=== PATIENT | male | born 1990 | race Caucasian/White ===

== ENCOUNTER 2020-11-20 12:05 | Emergency (ER) | payer OTHER, MEDICAID, SELFPAY ==
[2020-11-20 12:17] VITALS: BP 162/92; PULSE 100; RESP 18; TEMP 36.9; O2SAT 100; BMI 18.1
--- NOTE | 2020-11-20 12:21 | PC.NURSE ---
pt just walked out of department stating he needs to use the restroom, explained the restroom is here in department, pt kept walking. will wait for a few minutes to see if he returns.
--- NOTE | 2020-11-20 12:39 | ED.MEDCLEAR ---
HPI - Medical Clearance <CLAUDIO Baird - Last Filed: 11/20/20 12:40> General Chief complaint: Medical Clearance Stated complaint: Need to get medically cleared for detox Time Seen by Provider: 11/20/20 12:23 Source: patient Mode of arrival: Ambulatory History of Present Illness HPI Narrative: I have signed the for the patient but patient had already left ED when I went into the room to evaluate the patient at 1229 Patient History <CLAUDIO Baird - Last Filed: 11/20/20 12:40> Social History Smoking Status: Current every day smoker Smoking Status: Current every day smoker tobacco type: cigarettes Substance Use Type: marijuana, heroin and methamphetamine Exam <CLAUDIO Baird Last Filed: 11/20/20 12:40> Initial Vital Signs Initial Vital Signs: Vital Signs Temperature 98.4 F 11/20/20 12:17 Pulse Rate 100 H 11/20/20 12:17 Respiratory Rate 18 11/20/20 12:17 Blood Pressure 162/92 H 11/20/20 12:17 Pulse Oximetry 100 11/20/20 12:17 <Orlando Clifford DO - Last Filed: 11/20/20 13:03> Initial Vital Signs Initial Vital Signs: Vital Signs Temperature 98.4 F 11/20/20 12:17 Pulse Rate 100 H 11/20/20 12:17 Respiratory Rate 18 11/20/20 12:17 Blood Pressure 162/92 H 11/20/20 12:17 Pulse Oximetry 100 11/20/20 12:17 Discharge Plan Departure Patient Disposition: Left Without Being Seen Clinical Impression: Patient left before evaluation by physician <DO Tigre Mccall Last Filed: 11/20/20 13:03> Cosign ED Attending Cosignature Attestation: Dr Clifford Co-Sign Statement: I was available for consultation during this patient's emergency department visit. This chart is signed by myself for administrative purposes only. I did not have direct contact with this patient during this visit. They were seen independently by the APC.
== END 2020-11-20 12:23 | disposition left against medical advice (07) ==
PROVIDERS: Emergency Provider Nurse Practitioner Family
CPT/HCPCS: 99281

== ENCOUNTER 2023-05-22 01:54 | Emergency (ER) | payer OTHER, MEDICAID, SELFPAY ==
[2023-05-22 01:59] VITALS: BP 146/92; PULSE 84; RESP 18; TEMP 36.4; O2SAT 100
--- NOTE | 2023-05-22 03:04 | ED.EXTPRO ---
HPI - Extremity Problem <Pina Layton MD - Last Filed: 05/31/23 18:22> General Chief complaint: Extremity Problem,Nontraumatic Stated complaint: Wants fluids Time Seen by Provider: 05/22/23 02:10 Source: patient Mode of arrival: Ambulatory History of Present Illness HPI Narrative: 32-year-old gentleman with history of methamphetamine and opioid use disorder states he currently is in remission but has been discharged from his sober living facility presents complaining that he is having difficulty thinking and there no thoughts in his head. He feels he needs fluids. He has difficulty focusing and nods off mid sentence. He states that he does not currently have a place to live since being discharged from his sober living situation he has simply been wandering the streets. He does not remember the last time that he slept. He does not describe fevers, cough, chills, abdominal pain, vomiting or diarrhea. Review of Systems <Pina Layton MD - Last Filed: 05/31/23 18:22> Review of Systems Narrative: Pertinent positive and negative findings as per HPI Patient History <Pina Layton MD - Last Filed: 05/31/23 18:22> Social History Smoking Status: Current every day smoker Smoking Status: Current every day smoker tobacco type: cigarettes Substance Use Type: marijuana, heroin and methamphetamine Exam <Pina Layton MD - Last Filed: 05/31/23 18:22> Initial Vital Signs Initial Vital Signs: Vital Signs Temperature 97.5 F L 05/22/23 01:59 Pulse Rate 84 05/22/23 01:59 Respiratory Rate 18 05/22/23 01:59 Blood Pressure 146/92 H 05/22/23 01:59 Pulse Oximetry 100 05/22/23 01:59 Oxygen Delivery Method Room Air 05/22/23 01:59 General: Chronically ill-appearing, quite thin, mildly injected sclera, nodding off in between words. HEENT: Moist mucous membranes, normal sclera with reactive pupils Respiratory: Lungs are clear to auscultation, no wheezing no rales no rhonchi. Full and symmetrical air movement Cardiac: Regular rate and rhythm no murmurs no bruits Abdomen: Soft, nontender, good bowel tones, no flank pain Skin: Warm and dry, no rashes Neurologic: Grossly neurologically intact with no obvious asymmetries or abnormalities Extremities: No trauma, well perfused Psych: Fatigued, difficulty focusing, speech is somewhat confused but not pressured. He does not appear to be responding to internal stimuli <pAril Glez DO - Last Filed: 05/22/23 15:42> Initial Vital Signs Initial Vital Signs: Vital Signs Temperature 97.5 F L 05/22/23 01:59 Pulse Rate 84 05/22/23 01:59 Respiratory Rate 18 05/22/23 01:59 Blood Pressure 146/92 H 05/22/23 01:59 Pulse Oximetry 100 05/22/23 01:59 Oxygen Delivery Method Room Air 05/22/23 01:59 Course <Pina Layton MD - Last Filed: 05/31/23 18:22> Orders Ordered: ED Orders 05/22/23 07:04 Consult to [facility] Principal Technologist Stat Vital Signs Vital signs: Vital Signs - 8 hr 05/22/23 07:55 05/22/23 13:59 Pulse Rate 63 60 Blood Pressure 145/83 H 141/77 H Pulse Oximetry 99 97 Oxygen Delivery Method Room Air Room Air <April Glez DO - Last Filed: 05/22/23 15:42> Orders Ordered: ED Orders 05/22/23 07:04 Consult to [facility] Principal Technologist Stat Vital Signs Vital signs: Vital Signs - 8 hr 05/22/23 07:55 05/22/23 13:59 Pulse Rate 63 60 Blood Pressure 145/83 H 141/77 H Pulse Oximetry 99 97 Oxygen Delivery Method Room Air Room Air MDM - Extremity (Nontraumatic) <Pina Layton MD - Last Filed: 05/31/23 18:22> Lab Data 05/22/23 04:00 05/22/23 04:00 Labs: Lab Results 05/22/23 05/22/23 05/22/23 Range/Units 04:00 04:00 04:00 WBC 10.5 (4.5-11.0) X10^3/uL RBC 4.72 (4.5-5.9) X10^6/uL Hgb 13.7 (13.5-17.5) g/dL Hct 39.8 L (41-53) % MCV 84.1 (80-100) fL MCH 29.1 (26-34) PG MCHC 34.6 (30-36) % RDW 14.6 (11.6-14.8) % Plt Count 191 (150-400) X10^3/uL Neut % (Auto) 71.5 (50-75) % Lymph % (Auto) 17.2 L (25-40) % [place] % (Auto) 9.6 (3-14) % Eos % (Auto) 0.9 L (2-4) % Baso % (Auto) 0.8 (0-2) % Neut # (Auto) 7500 H (6976-3206) /uL Lymph # (Auto) 1800 (8708-0550) /uL [place] # (Auto) 1000 H (0-900) /uL Eos # (Auto) 100 (0-450) /uL Baso # (Auto) 100 (0-100) /uL Sodium 134 L (137-145) mmol/L Potassium 3.7 (3.4-5.1) mmol/L Chloride 98 (98-107) mmol/L Carbon Dioxide 29 (22-32) mmol/L BUN 13 (9-20) mg/dL Creatinine 0.76 (0.66-1.25) mg/dL Estimated GFR > 60 (>60) mL/min BUN/Creatinine Ratio 17.1 (6-22) Glucose 104 H (70-100) mg/dL Calcium 8.6 (8.4-10.2) mg/dL Total Bilirubin 1.1 (0.2-1.3) mg/dL AST 70 H (17-59) IU/L ALT 34 (<50) IU/L Alkaline Phosphatase 60 (38-126) U/L Total Protein 7.3 (6.3-8.2) g/dL Albumin 4.3 (3.5-5.0) g/dL Globulin 3.0 (1.7-4.1) g/dL Albumin/Globulin Ratio 1.4 (1.0-2.8) TSH 1.49 (0.47-4.68) uIU/mL U Opiates 300ng/mL cut (Negative) Ur Oxycodone Screen (Negative) Urine Methadone Screen (Negative) Ur Barbiturates Screen (Negative) U Tricyclic Antidepress (Negative) Ur Phencyclidine Scrn (Negative) Ur Amphetamines Screen (Negative) U Methamphetamines Scrn (Negative) Ur MDMA Scrn (Ecstasy) (Negative) U Benzodiazepines Scrn (Negative) Urine Cocaine Screen (Negative) U Marijuana (THC) Screen (Negative) Ethyl Alcohol < 10 ( - 10) mg/dL 05/22/23 Range/Units 06:38 WBC (4.5-11.0) X10^3/uL RBC (4.5-5.9) X10^6/uL Hgb (13.5-17.5) g/dL Hct (41-53) % MCV (80-100) fL MCH (26-34) PG MCHC (30-36) % RDW (11.6-14.8) % Plt Count (150-400) X10^3/uL Neut % (Auto) (50-75) % Lymph % (Auto) (25-40) % [place] % (Auto) (3-14) % Eos % (Auto) (2-4) % Baso % (Auto) (0-2) % Neut # (Auto) (3779-5642) /uL Lymph # (Auto) (9129-6539) /uL [place] # (Auto) (0-900) /uL Eos # (Auto) (0-450) /uL Baso # (Auto) (0-100) /uL Sodium (137-145) mmol/L Potassium (3.4-5.1) mmol/L Chloride (98-107) mmol/L Carbon Dioxide (22-32) mmol/L BUN (9-20) mg/dL Creatinine (0.66-1.25) mg/dL Estimated GFR (>60) mL/min BUN/Creatinine Ratio (6-22) Glucose (70-100) mg/dL Calcium (8.4-10.2) mg/dL Total Bilirubin (0.2-1.3) mg/dL AST (17-59) IU/L ALT (<50) IU/L Alkaline Phosphatase (38-126) U/L Total Protein (6.3-8.2) g/dL Albumin (3.5-5.0) g/dL Globulin (1.7-4.1) g/dL Albumin/Globulin Ratio (1.0-2.8) TSH (0.47-4.68) uIU/mL U Opiates 300ng/mL cut Negative (Negative) Ur Oxycodone Screen Negative (Negative) Urine Methadone Screen Negative (Negative) Ur Barbiturates Screen Negative (Negative) U Tricyclic Antidepress Negative (Negative) Ur Phencyclidine Scrn Negative (Negative) Ur Amphetamines Screen Negative (Negative) U Methamphetamines Scrn Negative (Negative) Ur MDMA Scrn (Ecstasy) Negative (Negative) U Benzodiazepines Scrn Negative (Negative) Urine Cocaine Screen Negative (Negative) U Marijuana (THC) Screen Negative (Negative) Ethyl Alcohol ( - 10) mg/dL Urine Dip Bedside Urine Glucose Negative Bedside Urine Bilirubin - Negative Bedside Urine Ketone - Negative Urine Specific [place] 1.015 Bedside Urine Occult Blood - Negative Bedside Urine pH 6.0 Bedside Urine Protein - Negative Bedside Urine Urobilinogen - Negative Bedside Urine Nitrite - Negative Bedside Urine Leukocytes - Negative Esterase MDM Narrative Medical decision making narrative: CC: ?can not think to good? this is continued exacerbation of a chronic problem with uncertain prognosis Complicating co-morbidities: Prior history of methamphetamine and opioid use disorder, recently lost sober living opportunities Data collected from: patient, Social determinants of health that may influence the patients condition: Homeless Medical records reviewed: Records from [facility] are reviewed. Patient was seen on May 05 with concerns for acute psychosis, urine drug screen was clean specifically no methamphetamine or opiates noted. At that time he was accompanied by his substance abuse counselor and sister and both of them felt that he was ?spacey? and not himself. The patient at that time reported hearing voices. Was seen by social work and not felt to be appropriate for DCR but was not felt to be disabled enough to be detained. Social work notes at that time indicate that he was living at [facility] after discharge from detention and was receiving Suboxone from the [facility] in [place] Differential considered: Returned to use, acute psychosis Exam documented above, pertinent findings include: Fatigue to the point of falling asleep mid sentence. Small but not pinpoint pupils. Erratic behavior, was here earlier in the emergency department and left when we told him he could not go down in use the bathroom by labor and delivery. Thin to the point of cachexia. Heart and lungs are normal. He is able to ambulate without difficulty but complains that his legs are not working. Lab Test results independently reviewed as above. Pertinent findings: CBC is unremarkable Chemistries are reassuring, slightly elevated AST Alcohol level is less than 10 Independently reviewed EKG as above Imaging studies independently reviewed: CT scan of the head on May 05 was done at [facility] showed no acute intracranial abnormalities. Consultations: Treatments: Re-evaluations: Discussion: Disordered thinking, confusion concern for acute psychosis. Patient does have history of fentanyl and methamphetamine use however urine drug screen was unremarkable today and was unremarkable at [facility] on May 05. I am concerned that his acute psychosis continues despite outpatient plan as outlined after DCR evaluation on May 05 and he may be appropriate for DCR evaluation again. <April Glez, DO - Last Filed: 05/22/23 15:42> Lab Data Labs: Lab Results 05/22/23 05/22/23 05/22/23 Range/Units 04:00 04:00 04:00 WBC 10.5 (4.5-11.0) X10^3/uL RBC 4.72 (4.5-5.9) X10^6/uL Hgb 13.7 (13.5-17.5) g/dL Hct 39.8 L (41-53) % MCV 84.1 (80-100) fL MCH 29.1 (26-34) PG MCHC 34.6 (30-36) % RDW 14.6 (11.6-14.8) % Plt Count 191 (150-400) X10^3/uL Neut % (Auto) 71.5 (50-75) % Lymph % (Auto) 17.2 L (25-40) % [place] % (Auto) 9.6 (3-14) % Eos % (Auto) 0.9 L (2-4) % Baso % (Auto) 0.8 (0-2) % Neut # (Auto) 7500 H (6620-1317) /uL Lymph # (Auto) 1800 (4296-5756) /uL [place] # (Auto) 1000 H (0-900) /uL Eos # (Auto) 100 (0-450) /uL Baso # (Auto) 100 (0-100) /uL Sodium 134 L (137-145) mmol/L Potassium 3.7 (3.4-5.1) mmol/L Chloride 98 (98-107) mmol/L Carbon Dioxide 29 (22-32) mmol/L BUN 13 (9-20) mg/dL Creatinine 0.76 (0.66-1.25) mg/dL Estimated GFR > 60 (>60) mL/min BUN/Creatinine Ratio 17.1 (6-22) Glucose 104 H (70-100) mg/dL Calcium 8.6 (8.4-10.2) mg/dL Total Bilirubin 1.1 (0.2-1.3) mg/dL AST 70 H (17-59) IU/L ALT 34 (<50) IU/L Alkaline Phosphatase 60 (38-126) U/L Total Protein 7.3 (6.3-8.2) g/dL Albumin 4.3 (3.5-5.0) g/dL Globulin 3.0 (1.7-4.1) g/dL Albumin/Globulin Ratio 1.4 (1.0-2.8) TSH 1.49 (0.47-4.68) uIU/mL U Opiates 300ng/mL cut (Negative) Ur Oxycodone Screen (Negative) Urine Methadone Screen (Negative) Ur Barbiturates Screen (Negative) U Tricyclic Antidepress (Negative) Ur Phencyclidine Scrn (Negative) Ur Amphetamines Screen (Negative) U Methamphetamines Scrn (Negative) Ur MDMA Scrn (Ecstasy) (Negative) U Benzodiazepines Scrn (Negative) Urine Cocaine Screen (Negative) U Marijuana (THC) Screen (Negative) Ethyl Alcohol < 10 ( - 10) mg/dL 05/22/ Range/Units 06:38 WBC (4.5-11.0) X10^3/uL RBC (4.5-5.9) X10^6/uL Hgb (13.5-17.5) g/dL Hct (41-53) % MCV (80-100) fL MCH (26-34) PG MCHC (30-36) % RDW (11.6-14.8) % Plt Count (150-400) X10^3/uL Neut % (Auto) (50-75) % Lymph % (Auto) (25-40) % [place] % (Auto) (3-14) % Eos % (Auto) (2-4) % Baso % (Auto) (0-2) % Neut # (Auto) (0804-6936) /uL Lymph # (Auto) (9159-2576) /uL [place] # (Auto) (0-900) /uL Eos # (Auto) (0-450) /uL Baso # (Auto) (0-100) /uL Sodium (137-145) mmol/L Potassium (3.4-5.1) mmol/L Chloride (98-107) mmol/L Carbon Dioxide (22-32) mmol/L BUN (9-20) mg/dL Creatinine (0.66-1.25) mg/dL Estimated GFR (>60) mL/min BUN/Creatinine Ratio (6-22) Glucose (70-100) mg/dL Calcium (8.4-10.2) mg/dL Total Bilirubin (0.2-1.3) mg/dL AST (17-59) IU/L ALT (<50) IU/L Alkaline Phosphatase (38-126) U/L Total Protein (6.3-8.2) g/dL Albumin (3.5-5.0) g/dL Globulin (1.7-4.1) g/dL Albumin/Globulin Ratio (1.0-2.8) TSH (0.47-4.68) uIU/mL U Opiates 300ng/mL cut Negative (Negative) Ur Oxycodone Screen Negative (Negative) Urine Methadone Screen Negative (Negative) Ur Barbiturates Screen Negative (Negative) U Tricyclic Antidepress Negative (Negative) Ur Phencyclidine Scrn Negative (Negative) Ur Amphetamines Screen Negative (Negative) U Methamphetamines Scrn Negative (Negative) Ur MDMA Scrn (Ecstasy) Negative (Negative) U Benzodiazepines Scrn Negative (Negative) Urine Cocaine Screen Negative (Negative) U Marijuana (THC) Screen Negative (Negative) Ethyl Alcohol ( - 10) mg/dL Urine Dip Bedside Urine Glucose Negative Bedside Urine Bilirubin - Negative Bedside Urine Ketone - Negative Urine Specific [place] 1.015 Bedside Urine Occult Blood - Negative Bedside Urine pH 6.0 Bedside Urine Protein - Negative Bedside Urine Urobilinogen - Negative Bedside Urine Nitrite - Negative Bedside Urine Leukocytes - Negative Esterase MDM Narrative Medical decision making narrative: CC: ?can not think to good? this is continued exacerbation of a chronic problem with uncertain prognosis Complicating co-morbidities: Prior history of methamphetamine and opioid use disorder, recently lost sober living opportunities Data collected from: patient, Social determinants of health that may influence the patients condition: Homeless Medical records reviewed: Records from [facility] are reviewed. Patient was seen on May 05 with concerns for acute psychosis, urine drug screen was clean specifically no methamphetamine or opiates noted. At that time he was accompanied by his substance abuse counselor and sister and both of them felt that he was ?spacey? and not himself. The patient at that time reported hearing voices. Was seen by social work and not felt to be appropriate for DCR but was not felt to be disabled enough to be detained. Social work notes at that time indicate that he was living at [facility] after discharge from detention and was receiving Suboxone from the [facility] in [place] Differential considered: Returned to use, acute psychosis Exam documented above, pertinent findings include: Fatigue to the point of falling asleep mid sentence. Small but not pinpoint pupils. Erratic behavior, was here earlier in the emergency department and left when we told him he could not go down in use the bathroom by labor and delivery. Thin to the point of cachexia. Heart and lungs are normal. He is able to ambulate without difficulty but complains that his legs are not working. Lab Test results independently reviewed as above. Pertinent findings: CBC is unremarkable Chemistries are reassuring, slightly elevated AST Alcohol level is less than 10 Independently reviewed EKG as above Imaging studies independently reviewed: CT scan of the head on May 05 was done at [facility] showed no acute intracranial abnormalities. Consultations: Treatments: Re-evaluations: Discussion: Disordered thinking, confusion concern for acute psychosis. Patient does have history of fentanyl and methamphetamine use however urine drug screen was unremarkable today and was unremarkable at [facility] on May 05. I am concerned that his acute psychosis continues despite outpatient plan as outlined after DCR evaluation on May 05 and he may be appropriate for DCR evaluation again. Patient signed out to be by Dr. Layton Patient seen evaluated by myself currently sleeping. Concern were ongoing acute psychosis. Drug screen is negative to day. Patient is actually voluntary would like placement therefore no DCR require he is not gravely disabled and does not meet involuntary criteria. Patient denies any suicidal or homicidal ideations. He has been sleeping most of his time with me. He is eaten lunch. I do not appreciate any acute psychosis drug screen is clear. I have discussed case with social work who states would be very difficult to place. We actually attempted to get him placed at [facility] that they also agreed no active psychosis or reason for mental health placement at this time. Attempted take it patient motel voucher but all motels are filled and unaware of the voucher. Discharge Plan Departure Patient Disposition: Home Clinical Impression: Feared complaint without diagnosis, Homelessness Activity Restrictions/Additional Instructions: *You have been diagnosed with [ ] *What to do: At this time I do recommend that you talk to [facility] if you would like a mental health evaluation You may try [facility] to see what they can help you for living situation *Continue to take medications as directed *Follow up with your primary care provider in 2-3 days or call [phone] *Return to ER if you should have any new, worsening or concerning symptoms Referrals: [facility] [Outside] [facility] [Outside] Stand Alone Forms: Patient Portal/API ED Sign-out <Pina Layton MD - Last Filed: 05/31/23 18:22> Cosign ED [facility]: I was immediately available in the department for consultation throughout this patient's visit. Pina Layton MD
[2023-05-22 04:11] LABS: Add Manual Diff / Slide Review NO; Basophils Absolute Auto 100 /uL (0-100); Basophils Percent Auto 0.8 % (0-2); Eosinophils Absolute Auto 100 /uL (0-450); Eosinophils Percent Auto 0.9 % (2-4); Hematocrit 39.8 % (41-53); Hemoglobin 13.7 g/dL (13.5-17.5); Lymphocytes Absolute Auto 1800 /uL (1100-4500); Lymphocytes Percent Auto 17.2 % (25-40); Mean Corpuscular HGB Conc 34.6 % (30-36); Mean Corpuscular Hemoglobin 29.1 PG (26-34); Mean Corpuscular Volume 84.1 fL (80-100); Monocytes Absolute Auto 1000 /uL (0-900); Monocytes Percent Auto 9.6 % (3-14); Neutrophils Absolute Auto 7500 /uL (1500-7000); Neutrophils Percent Auto 71.5 % (50-75); Platelet Count 191 X10^3/uL (150-400); Red Blood Cell Count 4.72 X10^6/uL (4.5-5.9); Red Cell Distribution Width 14.6 % (11.6-14.8); White Blood Cell Count 10.5 X10^3/uL (4.5-11.0)
[2023-05-22 04:24] LABS: Alanine Aminotransferase 34 IU/L (<50); Albumin 4.3 g/dL (3.5-5.0); Albumin Globulin Ratio 1.4 (1.0-2.8); Alkaline Phosphatase 60 U/L (38-126); Aspartate Aminotransferase 70 IU/L (17-59); BUN Creatinine Ratio 17.1 (6-22); Bilirubin Total 1.1 mg/dL (0.2-1.3); Blood Urea Nitrogen 13 mg/dL (9-20); Calcium 8.6 mg/dL (8.4-10.2); Carbon Dioxide 29 mmol/L (22-32); Chloride 98 mmol/L (98-107); Estimated Glomerular Filt Rate > 60 mL/min (>60); Ethanol (ETOH) < 10 mg/dL; Glucose 104 mg/dL (70-100); HEMOLYSIS 42 (0-50); Potassium 3.7 mmol/L (3.4-5.1); Sodium 134 mmol/L (137-145); Total Protein 7.3 g/dL (6.3-8.2)
[2023-05-22 05:00] LABS: Thyroid Stimulating Hormone 1.49 uIU/mL (0.47-4.68)
[2023-05-22 06:55] LABS: UR Morphine/Opiate cutoff 300 Negative (Negative); Ur Creatinine Normal (Normal); Ur Specific Gravity Normal (Normal); Urine Amphetamines Negative (Negative); Urine Barbiturates Negative (Negative); Urine Benzodiazepines Negative (Negative); Urine Cocaine Negative (Negative); Urine MDMA Negative (Negative); Urine Methadone Negative (Negative); Urine Methamphetamines Negative (Negative); Urine Oxycodone Negative (Negative); Urine Phencyclidine Negative (Negative); Urine Tetrahydrocannabinol Negative (Negative); Urine Tricyclic Antidepressant Negative (Negative); Urine pH Normal (Normal)
[2023-05-22 07:55] VITALS: BP 145/83; PULSE 63; O2SAT 99
--- NOTE | 2023-05-22 10:55 | PC.NURSE ---
This RN called up to inpatient [employer] [facility] for potential resources and assessment of this patient per provider order at 10:18. I left a message asking for a return call. No return call back at this time will continue to attempt.
[2023-05-22 13:59] VITALS: BP 141/77; PULSE 60; O2SAT 97
== END 2023-05-22 14:36 | disposition home or self-care (01) ==
PROVIDERS: Emergency Medicine; Emergency Provider Emergency Medicine
DX: R29.818 Other symptoms and signs involving the nervous system (principal)
CPT/HCPCS: 36415; 80053; 80305; 80320; 81003; 84443; 85025; 99283

== ENCOUNTER 2023-06-09 13:47 | Emergency (ER) | payer OTHER, MEDICAID, SELFPAY ==
[2023-06-09 13:50] VITALS: BP 151/85; PULSE 81; RESP 20; TEMP 37.2; O2SAT 100; BMI 19.9
[2023-06-09 14:25] LABS: Add Manual Diff / Slide Review NO; Basophils Absolute Auto 100 /uL (0-100); Basophils Percent Auto 1.1 % (0-2); Eosinophils Absolute Auto 100 /uL (0-450); Eosinophils Percent Auto 2.4 % (2-4); Hematocrit 38.3 % (41-53); Lymphocytes Absolute Auto 1500 /uL (1100-4500); Lymphocytes Percent Auto 30.8 % (25-40); Mean Corpuscular HGB Conc 34.1 % (30-36); Mean Corpuscular Hemoglobin 29.4 PG (26-34); Mean Corpuscular Volume 86.2 fL (80-100); Monocytes Absolute Auto 400 /uL (0-900); Monocytes Percent Auto 7.9 % (3-14); Neutrophils Absolute Auto 2800 /uL (1500-7000); Neutrophils Percent Auto 57.8 % (50-75); Platelet Count 223 X10^3/uL (150-400); Red Blood Cell Count 4.44 X10^6/uL (4.5-5.9); Red Cell Distribution Width 13.9 % (11.6-14.8); White Blood Cell Count 4.9 X10^3/uL (4.5-11.0)
--- NOTE | 2023-06-09 14:26 | PC.NURSE ---
pt states that he went to [facility] because he wanted help with the voices he hears in his head. pt says they gave him a presciption to medication that he did not take. today, he went to his grandmother's house because the voices told him to and his grandmother suggested that he seek help. Pt's grandmother called the police and the police brought him to the emergency department. Pt denies SI/HI but states that he has heard voices his whole like and would like help making them go away.
[2023-06-09 14:32] LABS: Acetaminophen < 10 ug/mL (10-30); Alanine Aminotransferase 13 IU/L (<50); Albumin 3.9 g/dL (3.5-5.0); Albumin Globulin Ratio 1.4 (1.0-2.8); Alkaline Phosphatase 49 U/L (38-126); Aspartate Aminotransferase 20 IU/L (17-59); BUN Creatinine Ratio 18.5 (6-22); Bilirubin Total 0.3 mg/dL (0.2-1.3); Blood Urea Nitrogen 15 mg/dL (9-20); Calcium 8.3 mg/dL (8.4-10.2); Carbon Dioxide 29 mmol/L (22-32); Chloride 105 mmol/L (98-107); Estimated Glomerular Filt Rate > 60 mL/min (>60); Ethanol (ETOH) < 10 mg/dL; Globulin 2.8 g/dL (1.7-4.1); Glucose 99 mg/dL (70-100); HEMOLYSIS < 15 (0-50); Potassium 3.7 mmol/L (3.4-5.1); Salicylate < 1.0 mg/dL (<20); Sodium 139 mmol/L (137-145); Total Protein 6.7 g/dL (6.3-8.2)
--- NOTE | 2023-06-09 14:38 | CM.SWNOTE ---
ED PRODUCTION PACKAGER Assessment PRODUCTION PACKAGER - Packing And Stamping Machine Operator Assessment PRODUCTION PACKAGER/Packing And Stamping Machine Operator Assessment Time Spent with Patient Start date 06/09/23 Visit Start Time 13:50 End date 06/09/23 Visit End Time 14:00 Total time Care Management spent on 15 minutes patient visit-in minutes Mental Health Screening Include Onset, Duration, Intensity Presenting Problem Patient presents to ED after his grandmother called LE and LE escorted patient to ED due to patient's concern for auditory command hallucinations. Patient endorses hx of suicide attempt , patient denies current SI or HI but is concerned for the intensity of hallucinations telling him to overdose, do drugs or kill self. Patient endorses hx of methamphetamine and Opiate use but states it has been a few months since last use. Patient presents to ED seeking inpatient hospitalization to address the auditory hallucinations. Precipitating Event(s) Patient was seen at [facility] yesterday for similar presentation and patient had recent inpatient hospitalization at [facility] on 05/25 after suicide attempt. Patient Strengths Patient has support from family and patient is seeking help. Current Behavioral Health Provider(s) Patient sees Dr. Steward Include Facility, Provider, Ph. # Daryl for Suboxone rx and has upcoming appt on 06/15/23 per [facility] records. Patient endorses he went to [facility] the other day as well. Psych. Hx Mental Health and Chemical Per [facility] records, patient has Dependency hx of Bipolar 1 disorder, Depression, Anxiety and polysubstance abuse. Patient endorses hx of Methamphetamine and opiate use , and current rx for Suboxone. Patient endorses last methamphetamine and opiate use was a few months ago. Per [facility], patient has rx for Depakote 250mg, Risperidone 2mg, & suboxone 8-2mg film. Patient endorses he has not been taking rx as prescibred and threw them out. Family Hx of Behavioral Abuse None reported Psychiatric Hospitalizations (date(s)/ Patient was hospitalized as location) [facility] at [facility] on 05/25/23-06/01/23 after suicide attempt. Patient endorses hx of rehabilitation at [facility] a few months ago. Psychosocial information & Support Patient is 32 y/o male who has Systems been staying at [facility] but states he was kicked out. Patient endorses he has recently been staying with his grandmother or homeless. School/Work None reported Legal Concerns Legal Matters - Outstanding Issues Patient has DOC officer named Jace per [facility] records. Mental Status Orientation (Person/Place/Time) A/Ox4 Stated Mood want to get help Affect (Congruent with Mood?) euthymic, full range, congruent with mood Thought Content - Specify/Describe Patient endorses he has been Obsessions, Delusions, Hallucinations hearing voices telling him to kill himself and overdose on drugs. Patient endorses he does not want to do drugs and he is trying to stay sober. Patient endorses visual hallucinations as well but is not able to describe what he sees. Thought Processes (Sriwlrw-Atyfbdty-Qkey coherent Jqozrdyw-Leigakdc-Merwmijpuc- Nsrvjgadwjkmva-Nzvscpq-Ifqpeureuuop- Thought Blocking) Speech (Mescxo-Xjbt-Soldrsr-Rapid-Soft- normal, somewhat pressured Loud-Pressured) Motor (Yodlyd-Qonfllkso-Lodm-Other) excessive, patient presents with continuous shaking of legs while sitting. Insight (Wamt-Zelb-Ulmp/Limited) fair Judgement (Pmff-Gkcx-Cenm/Limited) fair Impulse Control (Adequate-Impaired) adequate Memory (Ovehuaihc-Rqwvwp-Vewkzi, intact, not formally assessed Impaired-Intact) Concentration (Intact-Impaired) intact Attention (Intact-Impaired) intact Behavior (Appropriate-Inappropriate) appropriate Additional Comment Patient presents as calm, cooperative and communicative. Risk Assessment Suicidal Ideation (Plan) No Homicidal Ideation (Plan) No Comment Patient denies current SI and HI. Patient had suicide attempt on 05/25/23 when he overdosed on clonidine and Seroquel. Intervention Intervention PRODUCTION PACKAGER enters triage room to meet with patient. Present in room is director of events and patient. Patient endorses increase in auditory hallucinations telling him to kill self, use drugs and overdose. Patient endorses he presented at [facility] yesterday for similar symptoms . Patient's family called LE today and patient was escorted to this ED today. Patient endorses he is seeking voluntary inpatient hospitalization to address auditory hallucinations, patient endorses he has not been taking rx recently. It is the opinion of this PRODUCTION PACKAGER that patient would benefit from and be appropriate for voluntary inpatient hospitalization to address crisis stabilization, medication management and safety. Plan RA Plan PRODUCTION PACKAGER to seek voluntary inpatient bed for patient upon medical clearance. Maria Guadalupe Cleaya, DESOLDERER
[2023-06-09 14:54] LABS: Free T4, Direct Thyroxine 1.09 ng/dL (0.78-2.19)
[2023-06-09 15:05] LABS: COVID19 -Nasal RAPID Negative (Negative)
[2023-06-09 15:08] LABS: Thyroid Stimulating Hormone 1.83 uIU/mL (0.47-4.68)
[2023-06-09 15:34] LABS: UR Morphine/Opiate cutoff 300 Negative (Negative); Ur Creatinine Normal (Normal); Ur Specific Gravity Normal (Normal); Urine Amphetamines Negative (Negative); Urine Barbiturates Negative (Negative); Urine Benzodiazepines Negative (Negative); Urine Cocaine Negative (Negative); Urine MDMA Negative (Negative); Urine Methadone Negative (Negative); Urine Methamphetamines Negative (Negative); Urine Oxycodone Negative (Negative); Urine Phencyclidine Negative (Negative); Urine Tetrahydrocannabinol Negative (Negative); Urine Tricyclic Antidepressant Negative (Negative); Urine pH Normal (Normal)
--- NOTE | 2023-06-09 15:48 | ED.PSYCH ---
HPI - Psych General Chief Complaint: Psychiatric Symptoms Stated Complaint: hearing voices in his head Time Seen by Provider: 06/09/23 15:06 Source: patient Mode of arrival: Ambulatory History of Present Illness HPI Narrative: Patient here for hearing voices constantly. Patient has history of bipolar disorder depression anxiety and polysubstance abuse. Patient was seen by [facility] emergency department yesterday and discharged this morning after ED observation for hearing voices. He was just discharged from the hospital June 01 from [facility] for suicide attempt by drug overdose on clonidine and Seroquel. He was not discharged on Suboxone. He is currently on Depakote and Risperdal. Denies taking any drugs today. He is here voluntarily to get inpatient help. Denies any SI or HI Related Data Allergies Allergy/AdvReac Type Severity Reaction Status Date / Time No Known Drug Allergies Allergy Verified 06/09/23 13:50 Review of Systems Review of Systems Narrative: GENERAL: negative chills, fatigue, malaise, fever, sweats. HEENT: negative sinus pain, ear pain, sore throat RESPIRATORY: negative dyspnea, cough CARDIOVASCULAR: negative chest pain, palpitations GASTROINTESTINAL: negative nausea, vomiting, abdominal pain : negative dysuria, frequency, hematuria MUSCULOSKELETAL: negative muscle or bony pain SKIN: negative rash, skin lesions NEUROLOGIC: negative weakness, numbness PSYCH: Positive auditory hallucinations, negative SI negative HI ROS Unobtainable: All systems reviewed & are unremarkable except as noted in HPI and below Patient History Social History Smoking Status: Current every day smoker Smoking Status: Current every day smoker tobacco type: cigarettes Substance Use Type: marijuana, heroin, opiates and methamphetamine Exam Narrative Exam Narrative: GENERAL: in no distress, not toxic not dyspneic HEAD: Normocephalic. EYES: Pupils equal round ENT: Mucous membranes moist. NECK: Trachea midline. CARDIOVASCULAR: Regular rate and rhythm RESPIRATORY: Clear to auscultation. Breath sounds equal bilaterally. No wheezes, rales, or rhonchi. GASTROINTESTINAL: Abdomen soft, non-tender EXTREMITIES: No gross deformities. BACK: No flank tenderness. NEURO: AOx4. SKIN: Warm and dry PSYCH: Is anxious, is cooperative, negative SI negative HI, positive auditory hallucinations, no visual hallucinations. Not combative. No pressured speech or rapid speech. Initial Vital Signs Initial Vital Signs: Vital Signs Temperature 98.9 F 06/09/23 13:50 Pulse Rate 81 06/09/23 13:50 Respiratory Rate 20 06/09/23 13:50 Blood Pressure 151/85 H 06/09/23 13:50 Pulse Oximetry 100 06/09/23 13:50 Oxygen Delivery Method Room Air 06/09/23 13:50 Course Orders Ordered: ED Orders 06/09/23 13:56 Consult to STAGE BUILDER - Manager Drug Safety Stat 06/09/23 14:02 Urine Drug Screen, Rapid Stat 06/09/23 14:10 Acetaminophen Stat Complete Blood Count AUTO DIFF Stat Comprehensive Metabolic Panel Stat Ethanol (ETOH) Stat Free T4, Direct Thyroxine Stat Salicylate Stat Thyroid Stimulating Hormone Stat 06/09/23 14:43 COVID19 -Nasal RAPID Stat Vital Signs Vital signs: Vital Signs - 8 hr 06/09/23 13:50 Temperature 98.9 F Pulse Rate 81 Respiratory Rate 20 Blood Pressure 151/85 H Pulse Oximetry 100 Oxygen Delivery Method Room Air MDM - Psych Lab Data 06/09/23 14:10 06/09/23 14:10 Labs: Lab Results 06/09/23 06/09/23 06/09/23 Range/Units 14:02 14:10 14:10 WBC 4.9 (4.5-11.0) X10^3/uL RBC 4.44 L (4.5-5.9) X10^6/uL Hgb 13.0 L (13.5-17.5) g/dL Hct 38.3 L (41-53) % MCV 86.2 (80-100) fL MCH 29.4 (26-34) PG MCHC 34.1 (30-36) % RDW 13.9 (11.6-14.8) % Plt Count 223 (150-400) X10^3/uL Neut % (Auto) 57.8 (50-75) % Lymph % (Auto) 30.8 (25-40) % [place] % (Auto) 7.9 (3-14) % Eos % (Auto) 2.4 (2-4) % Baso % (Auto) 1.1 (0-2) % Neut # (Auto) 2800 (7921-7945) /uL Lymph # (Auto) 1500 (3494-5300) /uL [place] # (Auto) 400 (0-900) /uL Eos # (Auto) 100 (0-450) /uL Baso # (Auto) 100 (0-100) /uL Sodium 139 (137-145) mmol/L Potassium 3.7 (3.4-5.1) mmol/L Chloride 105 (98-107) mmol/L Carbon Dioxide 29 (22-32) mmol/L BUN 15 (9-20) mg/dL Creatinine 0.81 (0.66-1.25) mg/dL Estimated GFR > 60 (>60) mL/min BUN/Creatinine Ratio 18.5 (6-22) Glucose 99 (70-100) mg/dL Calcium 8.3 L (8.4-10.2) mg/dL Total Bilirubin 0.3 (0.2-1.3) mg/dL AST 20 (17-59) IU/L ALT 13 (<50) IU/L Alkaline Phosphatase 49 (38-126) U/L Total Protein 6.7 (6.3-8.2) g/dL Albumin 3.9 (3.5-5.0) g/dL Globulin 2.8 (1.7-4.1) g/dL Albumin/Globulin Ratio 1.4 (1.0-2.8) TSH (0.47-4.68) uIU/mL Free T4 (0.78-2.19) ng/dL Salicylates < 1.0 (<20) mg/dL U Opiates 300ng/mL cut Negative (Negative) Ur Oxycodone Screen Negative (Negative) Urine Methadone Screen Negative (Negative) Acetaminophen < 10 (10-30) ug/mL Ur Barbiturates Screen Negative (Negative) U Tricyclic Antidepress Negative (Negative) Ur Phencyclidine Scrn Negative (Negative) Ur Amphetamines Screen Negative (Negative) U Methamphetamines Scrn Negative (Negative) Ur MDMA Scrn (Ecstasy) Negative (Negative) U Benzodiazepines Scrn Negative (Negative) Urine Cocaine Screen Negative (Negative) U Marijuana (THC) Screen Negative (Negative) Ethyl Alcohol < 10 ( - 10) mg/dL SARS-CoV-2 (PCR) (Negative) 06/09/23 06/09/23 Range/Units 14:10 14:43 WBC (4.5-11.0) X10^3/uL RBC (4.5-5.9) X10^6/uL Hgb (13.5-17.5) g/dL Hct (41-53) % MCV (80-100) fL MCH (26-34) PG MCHC (30-36) % RDW (11.6-14.8) % Plt Count (150-400) X10^3/uL Neut % (Auto) (50-75) % Lymph % (Auto) (25-40) % [place] % (Auto) (3-14) % Eos % (Auto) (2-4) % Baso % (Auto) (0-2) % Neut # (Auto) (1599-6882) /uL Lymph # (Auto) (3537-9531) /uL [place] # (Auto) (0-900) /uL Eos # (Auto) (0-450) /uL Baso # (Auto) (0-100) /uL Sodium (137-145) mmol/L Potassium (3.4-5.1) mmol/L Chloride (98-107) mmol/L Carbon Dioxide (22-32) mmol/L BUN (9-20) mg/dL Creatinine (0.66-1.25) mg/dL Estimated GFR (>60) mL/min BUN/Creatinine Ratio (6-22) Glucose (70-100) mg/dL Calcium (8.4-10.2) mg/dL Total Bilirubin (0.2-1.3) mg/dL AST (17-59) IU/L ALT (<50) IU/L Alkaline Phosphatase (38-126) U/L Total Protein (6.3-8.2) g/dL Albumin (3.5-5.0) g/dL Globulin (1.7-4.1) g/dL Albumin/Globulin Ratio (1.0-2.8) TSH 1.83 D (0.47-4.68) uIU/mL Free T4 1.09 (0.78-2.19) ng/dL Salicylates (<20) mg/dL U Opiates 300ng/mL cut (Negative) Ur Oxycodone Screen (Negative) Urine Methadone Screen (Negative) Acetaminophen (10-30) ug/mL Ur Barbiturates Screen (Negative) U Tricyclic Antidepress (Negative) Ur Phencyclidine Scrn (Negative) Ur Amphetamines Screen (Negative) U Methamphetamines Scrn (Negative) Ur MDMA Scrn (Ecstasy) (Negative) U Benzodiazepines Scrn (Negative) Urine Cocaine Screen (Negative) U Marijuana (THC) Screen (Negative) Ethyl Alcohol ( - 10) mg/dL SARS-CoV-2 (PCR) Negative (Negative) Urine Dip Bedside Urine Glucose Negative Bedside Urine Bilirubin - Negative Bedside Urine Ketone - Negative Urine Specific Clare 1.015 Bedside Urine Occult Blood - Negative Bedside Urine pH 6.0 Bedside Urine Protein - Negative Bedside Urine Urobilinogen - Negative Bedside Urine Nitrite - Negative Bedside Urine Leukocytes - Negative Esterase MDM Narrative Medical decision making narrative: Patient here for hearing voices constantly. Patient has history of bipolar disorder depression anxiety and polysubstance abuse. Patient was seen by [facility] emergency department yesterday and discharged this morning after ED observation for hearing voices. He was just discharged from the hospital June 01 from [facility] for suicide attempt by drug overdose on clonidine and Seroquel. He was not discharged on Suboxone. He is currently on Depakote and Risperdal. Denies taking any drugs today. He is here voluntarily to get inpatient help. Denies any SI or HI After history and exam CBC CMP alcohol level drug screen TSH social work consult MDM CC: Auditory hallucination Complicating co-morbidities: History of bipolar, recent admission for suicide attempt Data collected from: Patient Medical records reviewed: ER visit notes yesterday [facility] emergency department Differential considered: Includes but not limited to bipolar/psychosis/substance abuse Exam documented above, pertinent findings include: Patient is cooperative. Is anxious though Lab Test results independently reviewed as above. Pertinent findings: WBC 4.9 sodium 139 glucose 99 AST 20 ALT 13 drug screen negative alcohol negative Tylenol negative aspirin negative TSH 1.83 Imaging studies independently reviewed: None indicated Consultations: loft worker apprenticeMaria Guadalupe to see patient 5:00 p.m.. loft worker apprentice has been able to find receiving facility, [facility] throat nurse practitioner Abhay Nair Treatments: None required Re-evaluations: Updated patient plan and patient is voluntary and desires transferred to [facility] Discussion: Appropriate for transfer to behavioral health services. Patient is voluntary. Diagnosis: Bipolar psychosis Discharge Plan Departure Patient Disposition: Xfer Psychiatric Hosp Clinical Impression: Bipolar disorder, Acute psychosis
--- NOTE | 2023-06-09 16:56 | CM.SWNOTE ---
REEL WORKER Note REEL WORKER calls [facility], it is reported that they have beds and can review patient. REEL WORKER faxes clinicals for review. REEL WORKER receives call from Levon at [facility] who reports that patient is accepted in [address]. Accepting provider is CLAUDIO Dominguez at [phone]. Nurse to Nurse ph # [phone]. REEL WORKER calls [facility] and schedules transport for 2029. REEL WORKER reviews this with patient and patient indicates agreement and understanding. Plan: patient to transfer to [facility] this evening via BLS. Maria Guadalupe Celaya, END FINDER FORMING DEPARTMENT
[2023-06-09 20:12] VITALS: BP 141/74; PULSE 67; RESP 16; O2SAT 100
== END 2023-06-09 20:25 ==
PROVIDERS: Emergency Provider Emergency Medicine
DX: F31.9 Bipolar disorder, unspecified (principal); F23 Brief psychotic disorder; Z20.822 Contact with and (suspected) exposure to COVID-19
CPT/HCPCS: 80053; 80305; 80320; 80329; 81003; 84439; 84443; 85025; 87635; 99283; C9803; G0480